=== PATIENT | female | born 1960 | race Caucasian/White ===

== ENCOUNTER 2019-09-10 01:29 | Day surgery (SDC) | payer OTHER, SELFPAY ==
[2019-08-26 14:12] VITALS: BMI 18.3
--- NOTE | 2019-09-08 12:57 | HP_ITS ---
DATE OF SERVICE: 09/10/2019 PREOPERATIVE DIAGNOSIS: Ulcerated nodule, right upper cheek below the eye. HISTORY: The patient is 59, she is referred with this nodular mass on her right cheek cyst near the orbital rim approximately 1 cm in diameter and ulcerated. I explained the importance of getting this off her. She understands the risks of this will be scarring, possibly infection, possibly a larger excision than this seems indicated at this time based on frozen section information. She could have a deformity to the lower lid possibly and numbness. She would like to proceed. ALLERGIES: SHE HAS NO KNOWN ALLERGIES TO MEDICATION. MEDICATIONS: Current medicine includes metoprolol only. PAST SURGICAL HISTORY: Prior surgeries include some back surgery 2 different x2004 and 2009. She has had hand surgery in 2016. She has no specialist. She is a smoker. REVIEW OF SYSTEMS: Indicates just high blood pressure. FAMILY HISTORY: Noncontributory. SOCIAL HISTORY: She lives in [place]. She is retired. She is a patient of [facility]. On the primary care's physician note and just of interest there indicates that while she is feeling well on her last visit in July, she declined all screen suggestions including Pap smear, mammogram, colonoscopy, DEXA scan also all labs such as cholesterol, complete metabolic panel, hemoglobin A1c. PHYSICAL EXAMINATION: GENERAL: According to her, she has a BMI of 20. Her height is given as 5 feet 5 inches, weight is 121. HEENT: Remarkable for the mass on the right upper cheek below her eye consistent with the skin cancer. There is no palpable adenopathy. CHEST: Clear to auscultation. HEART: Regular rate and rhythm by palpation. ABDOMEN: Soft, nontender. EXTREMITIES: Otherwise normal. ASSESSMENT: Ulcerated neoplasm of the right upper cheek below the eye. PLAN: Excision with frozen section and repair as indicated under MAC anesthetic. D I MT: Pauline
[2019-09-10] MEDS: LACTATED RINGERS 1,000 ML 30 ML IV CONT ×2 (07:01→08:39)
--- NOTE | 2019-09-10 07:09 | WPDANESEPPF ---
Anes - Initial Pre Proc Eval Procedure: Operation Date: 09/10/19 07:30 Proposed Procedures p Excision Ulcerated Nodule Right Upper Cheek (below eye) with Frozen Section - Baltazar Long MD Date/Time: 09/10/19 07:09 Surgeon: Baltazar Long MD Pre Op Diagnosis: Ulcerated nodule Right upper cheek Patient Data Age: 59 Gender: F Height: 5 ft 5 in Weight: 49.9 kg Allergies Allergy/AdvReac Type Severity Reaction Status Date / Time aspirin Allergy Severe STOMACH Verified 08/26/19 14:13 UPSET/ABDOMINAL PAIN codeine AdvReac Unknown Nausea & Verified 08/26/19 14:13 vomiting Home Medications Medication Instructions Recorded Confirmed Type cranberry 400 mg PO DAILY 08/26/19 08/26/19 History metoprolol succinate 50 mg PO DAILY 08/26/19 08/26/19 History multivitamin 1 tablet PO DAILY 08/26/19 08/26/19 History vitamin B complex 1 tablet PO DAILY 08/26/19 08/26/19 History Patient hx anesthesia problems: none Family hx anesthesia problems: none PMFSH Past Medical History Medical History (Updated 09/10/19 @ 07:09 by Edy Escobedo MD) Hypertension Smoker Tobacco abuse Family History Family History Father Family history of chronic obstructive pulmonary disease Family history of diabetes mellitus in first degree relative Mother Family history of malignant neoplasm of cervix Other Cerebrovascular accident Family history of allergic disorder Family history of cardiovascular disease Hypertension Social History Social History Smoking status: Current every day smoker Alcohol intake: current Anes - Eval Final PreProcedure Day of Procedure 09/10/19 07:09 Patient weight: normal Heart: regular rate and rhythm Lungs: decreased breath sounds Airway: Mallampati scale class II Neurological: alert and oriented Last oral intake: >/= 8 hours ASA classification: III Emergent: no Anesthetic plan: proceed Anesthesia type and monitoring: general GIVS and standard monitoring Informed Consent: The patient's anesthetic plan and its attendant risks and benefits were discussed with the patient/family/POA. Questions were solicited and answers provided to the satisfaction of the patient/family/POA.
[2019-09-10 07:18] VITALS: BP 143/96; PULSE 74; RESP 20; TEMP 37; O2SAT 100
--- NOTE | 2019-09-10 07:18 | WPDHPUPDATE1 ---
History and Physical Update Update Date/Time: 09/10/19 07:18 History and Physical has been reviewed, including an updated exam of the patient. There are NO changes in the patient's condition. Risks, benefits, and alternatives have been discussed and questions answered. Patient agrees to proceed with procedure.
--- NOTE | 2019-09-10 07:20 | WPDHPUPDATE1 ---
History and Physical Update Update Date/Time: 09/10/19 07:20 History and Physical has been reviewed, including an updated exam of the patient. There are NO changes in the patient's condition. Risks, benefits, and alternatives have been discussed and questions answered. Patient agrees to proceed with procedure.
[2019-09-10] MEDS: LIDO 1%/EPINEPHRINE 1:100,000 20 ML VIAL 8 ML INFILTRATE (08:04)
[2019-09-10] MEDS: BACITRACIN OINTMENT 15 GM TUBE 1 APPLIC TOPICAL (08:19)
--- NOTE | 2019-09-10 08:33 | PM.OP ---
Procedure Note - Brief Procedure Note - Brief Date of procedure: 09/10/19 Pre-op diagnosis: Ulcerated nodule Right upper cheek Post-op diagnosis: other (BCC of right upper cheek) Procedure performed: 1.5 cm excision of BCC of right upper cheek with complex repair 3.0 cm. Anesthesia: GLMA Surgeon: Baltazar Long MD Packing: No Pathology: yes Complications: No immediate complications Condition: stable Disposition: same day
[2019-09-10 08:39] VITALS: BP 111/76; PULSE 85; RESP 16; O2SAT 100
--- NOTE | 2019-09-10 08:57 | P.OP_ITS ---
Procedure Note - Detailed Date of procedure: 09/10/19 Pre-op diagnosis: Ulcerated nodule Right upper cheek Post-op diagnosis: other (Basal cell carcinoma right upper cheek) Procedure performed: 1.5 cm excision of basal cell carcinoma of right upper cheek with frozen section and complex repair 3 cm Description of procedure: The site was marked in preop. The patient was taken to the operating room and placed supine on the operating table. A time-out was held and confirmed. The site was prepped and draped widely with Betadine. A scab was removed from the center of this mass the site was re-prepped with Betadine. A marking was made f or the excision and the axis of closure very the area was infiltrated with 1% lidocaine with epinephrine. The full-thickness skin ellipse was taken with underlying fat it was marked at the most superior aspect for 12 o'clock. The specimen was sent to pathology for frozen section. The report is basal cell carcinoma margins free. The wound margins were extensively undermined in all directions skin and subcu from orbicularis. This wound was closed with intradermal 5 0 Vicryl with the vectors running transversely. The closure was then accomplished along the line of the previous marking. Standing cones were removed at both ends and the skin was closed with 6 0 running nylon.. She is discharged with a prescription for tramadol. She he has instructions in wound care and follow-up Surgeon: Baltazar Long MD
[2019-09-10 09:00] VITALS: BP 124/78; PULSE 83; RESP 16
[2019-09-10 09:20] VITALS: BP 107/76; PULSE 74; RESP 16
== END 2019-09-10 09:27 | disposition home or self-care (01) ==
PROVIDERS: PCP Family Medicine Adolescent Medicine; Visit Provider Plastic Surgery
PROC: (CPT 11642; principal; 2019-09-10 07:30)
DX: C44.319 Basal cell carcinoma of skin of other parts of face (principal); I10 Essential (primary) hypertension; F17.210 Nicotine dependence, cigarettes, uncomplicated
CPT/HCPCS: 11642; 13132; 88305; 88331; A9270; J2250; J2405; J2704; J3010; J7120